=== PATIENT | male | born 1980 ===

== ENCOUNTER 2021-11-15 13:55 | Emergency (ER) | payer OTHER, MEDICAID, SELFPAY ==
[2021-11-15] VITALS (7 sets, daily range): BP systolic 117–138; BP diastolic 69–87; PULSE 66–107; RESP 16–20; TEMP 36.8; O2SAT 94–97
--- NOTE | 2021-11-15 14:26 | ED_ITS ---
HPI - General Adult General: Chief complaint: General Medical Stated complaint: n/v , head pain/throat pain Time Seen by Provider: 11/15/21 14:20 History of Present Illness: Mr Lynne is a 41-year-old gentleman without significant past medical history who presents to the emergency department due to sore throat, malaise, headache, nausea. Symptom onset was approximately 3 weeks ago and initially mild however is significantly worsened over the past few days. He endorses severe sore throat with radiation down the right side of his neck. Additionally he endorses generalized malaise and headache. He has difficulty opening his mouth and speech is somewhat muffled. He denies similar episodes in the past. No other specific changes in health, exacerbating, or alleviating factors identified. Onset (ago): week(s) Location: mouth and neck Severity: severe Quality: aching and sharp Pain Consistency: constant Exacerbating factors: eating and movement Review of Systems General: Reports: 10 or more systems reviewed and unremarkable except in HPI and below PFS ED PFSH: Medical History (Updated 11/22/21 @ 00:48 by Hermelindo Linad MD) No significant past medical history Surgical History (Updated 11/15/21 @ 14:50 by Hermelindo Linda MD) History of appendectomy Social History (Updated 11/15/21 @ 14:50 by Hermelindo Linda MD) Smoking and tobacco status: current every day smoker Alcohol intake: current Alcohol intake frequency: few times a week Physical Exam Const: COMMON NORMALS: alert GENERAL APPEARANCE: cooperative, well developed and ill appearing HENMT: COMMON NORMALS: normocephalic and atraumatic HEAD & SCALP: normocephalic and atraumatic THROAT: posterior oropharynx normal OTHER: Right to left deviation of uvula secondary to right posterior pharyngeal swelling. Limited view of tonsils. No mouth floor lesions. Eye: COMMON NORMALS: conjunctivae normal CONJUNCTIVA: Yes conjunctivae normal SCLERA: sclerae normal Neck/C-Spine: COMMON NORMALS: supple GENERAL: Yes trachea midline Resp: COMMON NORMALS: normal respiratory effort and clear to auscultation bilaterally EFFORT & INSPECTION: Yes able to speak in complete sentences AUSCULTATION: clear to auscultation bilaterally Cardio: COMMON NORMALS: regular rhythm RATE: tachycardic RHYTHM: regular rhythm GI: COMMON NORMALS: Soft to palpation PALPATION: Yes Soft to palpation and No Tenderness to palpation present (GI) PERCUSSION: normal to percussion Extremity: GENERAL: Yes normal exam except as noted and No edema Neuro: COMMON NORMALS: moves all extremities SENSORIUM/ORIENTATION: Yes alert and No Orientation impaired Psych: COMMON NORMALS: mental status grossly normal and Normal thought process present THOUGHT PROCESS: Normal thought process present Course ED course: - Patient was seen and evaluated by me at bedside - Patient placed on cardiac monitors, IV access obtained - Initial evaluation notable for exam as above, initial exam concerning for 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 Patient is tolerating secretions, no evidence of airway compromise requiring emergent intervention - Labs and xrays personally interpreted by me - Analgesia given - Labs notable for leukocytosis, hemoconcentration. Metabolic panel without acute derangement. Strep negative. - Imaging notable for ill-defined likely developing CIGARETTE MAKING MACHINE CATCHER however I do not feel that the stage of development is amenable to ED drainage - 2 L crystalloid given. Zosyn given. Steroids 125 mg Solu-Medrol. - Upon serial reexamination after treatment the patient was mildly improved. - Based on patient history, evaluation, and testing as interpreted the most likely cause of the patient's condition is likely developing peritonsillar abscess - Unfortunately we do not currently have the ENT on-call and hospitalist service uncomfortable admitting patient to our facility given potential requirement for further intervention if the antibiotics fail to resolve infection. - The results of ED evaluation were discussed with the patient including plan for transfer due to requirement for level of care not available at our facility. I used spanish medical interpreter telephone service for moy portions of ED encounter - Patient transferred from emergency department to [facility] without acute worsening. Note: Click bubbles or prepopulated vásquez in note writing are used for assistance with data collection and billing and are inherently more limited than narrative and other text portions of this note. Please use narrative for additional clinical history and defer to narrative/free test for any case of contradictory information. If information appears in only free text or click bubble it should be considered present or absent as reported. Please contact note internal communications writer f or clarifications of clinical information or contradictory information. MDM is a brief summary, contradictory or erroneous seeming information should be clarified and full note should be reviewed. Vital Signs: Vital signs: Vital Signs Temperature 98.2 F 11/15/21 14:04 Pulse Rate 66 04/03/22 19:52 Respiratory Rate 18 11/15/21 19:52 Blood Pressure 124/69 11/15/21 19:52 Pulse Oximetry 94 11/15/21 19:52 MDM - General Adult Medical Decision Making 41-year-old gentleman presenting with weeks of sore throat with significantly worsening over the past few days. Initial exam concerning for right-sided 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 Imaging notes likely developing CIGARETTE MAKING MACHINE CATCHER though not well organized and therefore I believe this is not amenable to ED intervention. Patient does have sepsis related to this infection. As we do not have ENT hospitalist service is uncomfortable admitting patient here and therefore patient transferred for inpatient management with ENT availability if future intervention required. Medical Records I reviewed the patient's medical records. Lab Data I reviewed the patient's lab results. : 11/15/21 15:05 11/15/21 15:[address] 11/15/21 14:34 IMPRESSION: 1. 19 mm right peritonsillar poorly defined low-density material concerning for an early peritonsillar abscess. 2. Scattered prominent lymph nodes throughout the neck right greater than left measuring up to 6.8 mm short axis. 3. Biapical emphysematous changes. Head CT 11/15/21 14:48 IMPRESSION: No acute intracranial abnormality. Laboratory Results WBC 17.5 10^3/uL (4.0-10.0) H 11/15/21 15:05 RBC 5.69 10^6/uL (4.1-5.3) H 11/15/21 15:05 Hgb 16.5 g/dL (11.7-16.6) 11/15/21 15:05 Hct 49.7 % (42.0-52.0) 11/15/21 15:05 MCV 87.3 fl (80-94) 11/15/21 15:05 MCH 29.0 pg (28.0-34.0) 11/15/21 15:05 MCHC 33.2 g/dL (30.0-36.0) 11/15/21 15:05 RDW 13.4 % (12.1-15.1) 11/15/21 15:05 Plt Count 409 10^3/cmm (130-400) H 11/15/21 15:05 MPV 9.0 fL (7.4-10.4) 11/15/21 15:05 Neut % (Auto) 72.3 % 11/15/21 15:05 Lymph % (Auto) 15.7 % 11/15/21 15:05 Jackson % (Auto) 10.9 % 11/15/21 15:05 Eos % (Auto) 0.3 % 11/15/21 15:05 Baso % (Auto) 0.3 % 11/15/21 15:05 Neut # (Auto) 12.65 10^3/uL (1.8-7.7) H 11/15/21 15:05 Lymph # (Auto) 2.8 10^3/uL (0.8-4.8) 11/15/21 15:05 Jackson # (Auto) 1.9 10^3/uL (0.2-0.9) H 11/15/21 15:05 Eos # (Auto) 0.1 10^3/uL (0.0-0.8) 11/15/21 15:05 Baso # (Auto) 0.1 10^3/uL (0.0-0.1) 11/15/21 15:05 Nucleated RBC % (auto) 0 % 11/15/21 15:05 Nucleated RBCs # 0.0 /100WBC 11/15/21 15:05 Sodium 138 mmol/L (136-145) 11/15/21 15:05 Potassium 4.0 mmol/L (3.5-5.1) 11/15/21 15:05 Chloride 100 mmol/L (98-107) 11/15/21 15:05 Carbon Dioxide 27 mmol/L (22-29) 11/15/21 15:05 Anion Gap 15.0 (5-19) 11/15/21 15:05 BUN 9 mg/dL (6-20) 11/15/21 15:05 Creatinine 0.8 mg/dL (0.7-1.2) 11/15/21 15:05 GFR Calculation 107.6 mL/min (90-130) 11/15/21 15:05 Glucose 94 mg/dL (65-115) 11/15/21 15:05 Calculated Osmolality 284 mOsm/kg (285-295) L 11/15/21 15:05 Lactic Acid 0.8 mmol/L (0.5-2.2) 11/15/21 15:05 Calcium 10.4 mg/dL (8.5-10.5) 11/15/21 15:05 Total Bilirubin 0.3 mg/dL (0.15-1.2) 11/15/21 15:05 AST 14 U/L (0-40) 11/15/21 15:05 ALT 21 U/L (0-41) 11/15/21 15:05 Alkaline Phosphatase 108 IU/L (40-130) 11/15/21 15:05 Total Protein 9.0 g/dL (6.6-8.7) H 11/15/21 15:05 Albumin 4.7 g/dL (3.5-5.2) 11/15/21 15:05 Globulin 4.3 g/dL (1.3-4.6) 11/15/21 15:05 Influenza Type A Ag Negative (Negative) 11/15/21 15:15 Influenza Type B Ag Negative (Negative) 11/15/21 15:15 Group A Strep Rapid Negative (Negative) 11/15/21 15:05 Discharge Plan Discharge Patient Disposition: Xfer Short-Term Hosp Clinical Impression: Peritonsillar abscess, Sepsis Condition: Stable Prescriptions: No Action No Known Home Medications 0RF Coding Level of Care Code 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
--- NOTE | 2021-11-15 14:34 | CTR_ITS ---
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 Radiation optimization: All CT scans at this facility use at least one of these dose optimization techniques: automated exposure control; mA and/or kV adjustment per patient size (includes targeted exams where dose is matched to clinical indication); or iterative reconstruction. Contrast material: OMNI 300; Contrast volume: 95 ml; Contrast route: INTRAVENOUS (IV); COMPARISON: CT head wo con* [id number] 11/15/2021 3:49 PM RADIATION DOSE METRICS: Total DLP (mGy-cm): 441.73 FINDINGS: Nasopharynx: Unremarkable. Oropharynx: 19 mm right peritonsillar poorly defined low-density material concerning for an early peritonsillar abscess. Hypopharynx: Unremarkable. Larynx: Unremarkable. Normal epiglottis. Retropharyngeal space: Unremarkable. Submandibular/Parotid glands: Normal. Glands are normal in size. Thyroid: Normal. No enlarged or calcified nodules. Lymph nodes: Scattered prominent lymph nodes throughout the neck right greater than left measuring up to 6.8 mm short axis. Trachea: Visualized trachea is unremarkable. Lungs: Biapical emphysematous changes. Bones/joints: Unremarkable. No acute fracture. Soft tissues: Unremarkable. No significant soft tissue swelling. CT/CT neck w con* [id number] IMPRESSION: 1. 19 mm right peritonsillar poorly defined low-density material concerning for an early peritonsillar abscess. 2. Scattered prominent lymph nodes throughout the neck right greater than left measuring up to 6.8 mm short axis. 3. Biapical emphysematous changes.
--- NOTE | 2021-11-15 14:48 | CTR_ITS ---
PROCEDURE INFORMATION: Exam: CT Head Without Contrast Exam date and time: 11/15/2021 3:49 PM Age: 41 years old Clinical indication: Pain; Headache TECHNIQUE: Imaging protocol: Computed tomography of the head without contrast. Radiation optimization: All CT scans at this facility use at least one of these dose optimization techniques: automated exposure control; mA and/or kV adjustment per patient size (includes targeted exams where dose is matched to clinical indication); or iterative reconstruction. COMPARISON: No relevant prior studies available. RADIATION DOSE METRICS: Total DLP (mGy-cm): 812.91 FINDINGS: Brain: Normal. No hemorrhage. Unremarkable white matter. No mass effect. Cerebral ventricles: No ventriculomegaly. Paranasal sinuses: Visualized sinuses are unremarkable. No fluid levels. Mastoid air cells: Visualized mastoid air cells are well aerated. Bones/joints: Unremarkable. No acute fracture. Soft tissues: Unremarkable. CT/CT head wo con* [id number] IMPRESSION: No acute intracranial abnormality.
[2021-11-15] MEDS: ondansetron 2 mg/ML SDV 2 mL 4 MG IVP (15:14)
[2021-11-15] MEDS: morphine 4 mg/mL SDV 1 mL IVP ×2 (15:14→17:46)
[2021-11-15 15:40] LABS: Basophils # 0.1 10^3/uL (0.0-0.1); Basophils % 0.3 %; Eosinophils # 0.1 10^3/uL (0.0-0.8); Eosinophils % 0.3 %; Hematocrit 49.7 % (42.0-52.0); Hemoglobin 16.5 g/dL (11.7-16.6); Lymphocytes # 2.8 10^3/uL (0.8-4.8); Lymphocytes % 15.7 %; Mean Corpuscular HGB Conc 33.2 g/dL (30.0-36.0); Mean Corpuscular Volume 87.3 fl (80-94); Monocytes # 1.9 10^3/uL (0.2-0.9); Monocytes % 10.9 %; Neutrophils # 12.65 10^3/uL (1.8-7.7); Neutrophils % 72.3 %; Nucleated Red Blood Cells % 0 %; Platelet Count 409 10^3/cmm (130-400); Red Blood Count 5.69 10^6/uL (4.1-5.3); Red Cell Distribution Width 13.4 % (12.1-15.1); White Blood Count 17.5 10^3/uL (4.0-10.0)
[2021-11-15] MEDS: iohexol 300 mg/mL 100 mL Btl IV (15:55)
[2021-11-15 16:00] LABS: Rapid Strep A Test Negative (Negative)
[2021-11-15 16:07] LABS: Lactic Sepsis W/Reflex 0.8 mmol/L (0.5-2.2)
[2021-11-15 16:08] LABS: Alanine Aminotransferase 21 U/L (0-41); Albumin Level 4.7 g/dL (3.5-5.2); Alkaline Phosphatase 108 IU/L (40-130); Aspartate Amino Transferase 14 U/L (0-40); Blood Urea Nitrogen 9 mg/dL (6-20); Calcium 10.4 mg/dL (8.5-10.5); Carbon Dioxide 27 mmol/L (22-29); Chloride 100 mmol/L (98-107); Globulin 4.3 g/dL (1.3-4.6); Glomerular Filtration Rate 107.6 mL/min (90-130); Glucose 94 mg/dL (65-115); Osmolality Calculated 284 mOsm/kg (285-295); Sodium 138 mmol/L (136-145); Total Bilirubin 0.3 mg/dL (0.15-1.2)
[2021-11-15 16:10] LABS: Influenza A by IFA Negative (Negative); Influenza B by IFA Negative (Negative)
[2021-11-15] MEDS: piperacillin-tazobactam 4.5 GM in sodium chloride 0.9% (plus) 50 ML IV (16:19)
[2021-11-15] MEDS: sodium chloride 0.9% 1,000 ML 999 ML IV (16:19)
--- NOTE | 2021-11-15 19:10 | PC.NURSE ---
1900 Patient awaiting transport team for transfer to [facility] in [place]. VS stable for transfer. IV antibiotics continue to infuse.
== END 2021-11-15 19:55 | disposition short-term general hospital (02) ==
PROVIDERS: Physician Assistant; Emergency Provider Emergency Medicine
DX: J36 Peritonsillar abscess (principal); A41.9 Sepsis, unspecified organism; F17.200 Nicotine dependence, unspecified, uncomplicated
CPT/HCPCS: 70450; 70491; 80053; 83605; 85025; 87040; 87081; 87804; 87880; 96365; 96375; 96376; 99285; J2270; J2405; J2543; J2930; J7030; Q9967

== ENCOUNTER 2022-01-06 10:21 | Outpatient (CLI) | payer OTHER, MEDICAID, SELFPAY ==
--- NOTE | 2022-01-06 10:38 | US_ITS ---
WS: [id number] RIGHT UPPER QUADRANT ULTRASOUND HISTORY: ABNORMAL LEVELS OF OTHER SERUM ENZYMES COMPARISON: None available. Liver: 14.6 cm in length. Normal size liver. No bile duct dilatation or mass. Portal Vein: Normal hepatopetal flow with monophasic waveform. Gallbladder: Well distended gallbladder. There are a few small calcifications within the gallbladder noted after changing position of the patient. No acute cholecystitis. CBD: 0.5 cm Pancreas: Normal size and echogenicity. Right kidney: 10.5 cm in length. Normal size and echogenicity. No hydronephrosis or mass. Aorta and IVC: Unremarkable abdominal aorta and IVC. No ascites. US/US abdomen limited [id number] IMPRESSION: 1. Cholelithiasis. Very small stones within the gallbladder. No acute cholecys titis. 2. No bile duct dilatation.
== END 2022-01-06 10:22 | disposition home or self-care (01) ==
PROVIDERS: Visit Provider Nurse Practitioner Family
DX: K80.20 Calculus of gallbladder without cholecystitis without obstruction (principal); R74.8 Abnormal levels of other serum enzymes
CPT/HCPCS: 76705

== ENCOUNTER → 2022-06-10 18:19 | Outpatient (BNVA) | payer OTHER, MEDICAID, SELFPAY | PROVIDERS: Visit Provider Registered Nurse Neonatal Intensive Care | DX: R10.9 Unspecified abdominal pain (principal) | CPT/HCPCS: 81000 ==

== ENCOUNTER 2022-06-15 19:25 | Emergency (ER) | payer MEDICAID, SELFPAY ==
[2022-06-15 19:39] VITALS: BP 129/85; PULSE 83; RESP 16; TEMP 36.6; O2SAT 99
[2022-06-15 20:41] LABS: Basophils # 0.1 10^3/uL (0.0-0.1); Basophils % 0.6 %; Eosinophils # 0.2 10^3/uL (0.0-0.8); Eosinophils % 2.5 %; Hematocrit 48.2 % (42.0-52.0); Hemoglobin 16.2 g/dL (11.7-16.6); Lymphocytes # 3.5 10^3/uL (0.8-4.8); Lymphocytes % 42.6 %; Mean Corpuscular HGB Conc 33.6 g/dL (30.0-36.0); Mean Corpuscular Hemoglobin 29.8 pg (28.0-34.0); Mean Corpuscular Volume 88.6 fl (80-94); Mean Platelet Volume 9.3 fL (7.4-10.4); Monocytes # 0.7 10^3/uL (0.2-0.9); Monocytes % 8.2 %; Neutrophils # 3.78 10^3/uL (1.8-7.7); Neutrophils % 45.7 %; Nucleated Red Blood Cells % 0 %; Platelet Count 327 10^3/cmm (130-400); Red Blood Count 5.44 10^6/uL (4.1-5.3); Red Cell Distribution Width 13.5 % (12.1-15.1); White Blood Count 8.3 10^3/uL (4.0-10.0)
[2022-06-15 21:01] LABS: Alanine Aminotransferase 36 U/L (0-41); Albumin Level 4.7 g/dL (3.5-5.2); Alkaline Phosphatase 67 U/L (40-130); Anion Gap 14.9 (5-19); Aspartate Amino Transferase 24 U/L (0-40); Blood Urea Nitrogen 11 mg/dL (6-20); Calcium 9.4 mg/dL (8.5-10.5); Carbon Dioxide 25 mmol/L (22-29); Chloride 103 mmol/L (98-107); Globulin 3.1 g/dL (1.3-4.6); Glomerular Filtration Rate 93.5 mL/min (90-130); Glucose 87 mg/dL (65-115); Lipase 21 U/L (13-60); Osmolality Calculated 287 mOsm/kg (285-295); Potassium 3.9 mmol/L (3.5-5.1); Sodium 139 mmol/L (136-145); Total Bilirubin 0.5 mg/dL (0.15-1.2); Total Protein 7.8 g/dL (6.6-8.7)
[2022-06-15 21:25] LABS: Add Urine Microscopic? NO; Charge for UA Resulting for Rev
[2022-06-15 21:59] LABS: Bilirubin Urine Neg (Negative); Blood Urine Neg (Negative); Glucose Urine UA Norm (Normal); Ketones Urine 1+ (Negative); Leukocyte Esterase Urine Negative (Negative); Nitrate Urine Negative (Negative); Protein Urine Neg (Negative); Urine Appearance Clear (CLEAR); Urine Color Yellow (Yellow); Urobilinogen Urine Norm (Negative); pH Urine 6 (5-7)
--- NOTE | 2022-06-15 22:29 | ED_ITS ---
HPI - Abdominal Pain General: Chief Complaint: Abdominal Pain Stated Complaint: ABD Pain, Back Pain Time Seen by Provider: 06/15/22 22:29 History of Present Illness: 42-year-old male patient comes in today with complaints of low back pain and left lower quadrant abdominal pain. 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 Patient denies any falls or recent injuries. Patient does have a history of gallstones. Patient is nontoxic in appearance. Patient appears in mild to moderate pain. Review of Systems General: Reports: 10 or more systems reviewed and unremarkable except in HPI and below Card: Denies: chest pain Resp: Denies: dyspnea GI: Reports: abdominal pain Musc: Reports: back pain Skin/Breast: Reports: rash PFSH ED PFSH: Medical History (Updated 06/16/22 @ 00:00 by NING Lopez) No significant past medical history Surgical History (Updated 11/15/21 @ 14:50 by Hermelindo Linda MD) History of appendectomy Social History (Updated 11/15/21 @ 14:50 by Hermelindo Linda MD) Smoking and tobacco status: current every day smoker Alcohol intake: current Alcohol intake frequency: few times a week Physical Exam Const: COMMON NORMALS: alert HENMT: COMMON NORMALS: normocephalic HEAD & SCALP: normocephalic Neck/C-Spine: GENERAL: Yes normal visual inspection Resp: COMMON NORMALS: normal respiratory effort and clear to auscultation bilaterally AUSCULTATION: clear to auscultation bilaterally Cardio: COMMON NORMALS: regular rate and regular rhythm RATE: regular rate RHYTHM: regular rhythm GI: COMMON NORMALS: Soft to palpation PALPATION: Yes Soft to palpation and Yes Tenderness to palpation present (GI) Details: LLQ Back/Pelvis: COMMON NORMALS: thoracic and lumbar spine normal to inspection Neuro: SENSORIUM/ORIENTATION: Yes alert Skin: COMMON NORMALS: turgor normal GENERAL SKIN EXAM: turgor normal Course Vital Signs: Vital signs: Vital Signs Temperature 97.8 F 06/15/22 19:39 Pulse Rate 83 06/15/22 19:39 Respiratory Rate 14 06/15/22 23:41 Blood Pressure 129/85 06/15/22 19:39 Pulse Oximetry 99 06/15/22 19:39 Oxygen Delivery Me thod 06/15/22 19:39 MDM - Abdominal Pain Medical Decision Making 42-year-old male comes in today with complaints of left side lower back pain radiating to the left groin. On exam patient's abdomen is soft with some tenderness in the left lower quadrant. Patient also has musculoskeletal tenderness on palpation of his low back. No central spinal tenderness is noted. Patient moves all extremities well. Differential diagnosis includes not limited to diverticulosis/diverticulitis, constipation, muscle strain, renal calculi, intervertebral disc disease, facet arthropathy, hernia. CT of the abdomen pelvis was notable for some small bowel and colon fluid prominence sugg esting a enterocolitis. CBC and CMP were unremarkable. Urinalysis was clean. Suspect a gastroenteritis with some abdominal pain. Patient was treated for pain and given fluids in the ER. Patient to continue with hydrocodone and ondansetron at home for symptoms. Recommend follow-up with primary care or return to the ER for worsening symptoms such as blood in vomit or stool, high fever, or new concerns. Lab Data : 06/15/22 20:33 06/15/22 20:33 Labs/Radiology: Radiology Impressions Abdomen/Pelvis CT 06/15/22 22:35 IMPRESSION: 1. Negative for hernia seen as clinically questioned. 2. Prominent fluid throughout the small bowel and colon may reflect an enterocolitis in the appropriate clinical setting. Laboratory Results WBC 8.3 10^3/uL (4.0-10.0) 06/15/22: RBC 5.44 10^6/uL (4.1-5.3) H 06/15/22 20: Hgb 16.2 g/dL (11.7-16.6) 06/15/22 20: Hct 48.2 % (42.0-52.0) 06/15/22 20: MCV 88.6 fl (80-94) 06/15/22 20: MCH 29.8 pg (28.0-34.0) 06/15/22 20: MCHC 33.6 g/dL (30.0-36.0) 06/15/22 20: RDW 13.5 % (12.1-15.1) 06/15/22 20: Plt Count 327 10^3/cmm (130-400) 06/15/22 20: MPV 9.3 fL (7.4-10.4) 06/15/22 20:33 Neut % (Auto) 45.7 % 06/15/22 20: Lymph % (Auto) 42.6 % 06/15/22 20: Perry % (Auto) 8.2 % 06/15/22 20: Eos % (Auto) 2.5 % 06/15/22 20: Baso % (Auto) 0.6 % 06/15/22 20: Neut # (Auto) 3.78 10^3/uL (1.8-7.7) 06/15/22 20: Lymph # (Auto) 3.5 10^3/uL (0.8-4.8) 06/15/22 20: Perry # (Auto) 0.7 10^3/uL (0.2-0.9) 06/15/22 20: Eos # (Auto) 0.2 10^3/uL (0.0-0.8) 06/15/22 20: Baso # (Auto) 0.1 10^3/uL (0.0-0.1) 06/15/22 20: Nucleated RBC % (auto) 0 % 06/15/22 20: Nucleated RBCs # 0.0 /100WBC 06/15/22 20:33 Sodium 139 mmol/L (136-145) 06/15/22 20: Potassium 3.9 mmol/L (3.5-5.1) 06/15/22 20: Chloride 103 mmol/L (98-107) 06/15/22 20: Carbon Dioxide 25 mmol/L (22-29) 06/15/22 20:33 Anion Gap 14.9 (5-19) 06/15/22 20:33 BUN 11 mg/dL (6-20) 06/15/22 20:33 Creatinine 0.9 mg/dL (0.7-1.2) 06/15/22 20:33 GFR Calculation 93.5 mL/min (90-130) 06/15/22 20: Glucose 87 mg/dL (65-115) 06/15/22 20: Calculated Osmolality 287 mOsm/kg (285-295) 06/15/22 20:33 Calcium 9.4 mg/dL (8.5-10.5) 06/15/22 20:33 Total Bilirubin 0.5 mg/dL (0.15-1.2) 06/15/22 20:33 AST 24 U/L (0-40) 06/15/22 20:33 ALT 36 U/L (0-41) 06/15/22 20:33 Alkaline Phosphatase 67 U/L (40-130) 06/15/22 20:33 Total Protein 7.8 g/dL (6.6-8.7) 06/15/22 20:33 Albumin 4.7 g/dL (3.5-5.2) 06/15/22 20:33 Globulin 3.1 g/dL (1.3-4.6) 06/15/22 20:33 Lipase 21 U/L (13-60) 06/15/22 20:33 Urine Color Yellow (Yellow) 06/15/22 19:58 Urine Appearance Clear (CLEAR) 06/15/22 19:58 Urine pH 6 (5-7) 06/15/22 19:58 Ur Specific Gust[place] 1.020 (1.005-1.030) 06/15/22 19:58 Urine Protein Neg (Negative) 06/15/22 19:58 Urine Glucose (UA) Norm (Normal) 06/15/22 19:58 Urine Ketones 1+ (Negative) H 06/15/22 19:58 Urine Blood Neg (Negative) 06/15/22 19:58 Urine Nitrate Negative (Negative) 06/15/22 19:58 Urine Bilirubin Neg (Negative) 06/15/22 19:58 Urine Urobilinogen Norm mg/dL (Negative) 06/15/22 19:58 Ur Leukocyte Esterase Negative (Negative) 06/15/22 19:58 Discharge Plan Discharge Patient Disposition: Home Clinical Impression: Gastroenteritis Abdominal pain Qualifiers: Abdominal location: left lower quadrant Qualified Code(s): R10.32 - Left lower quadrant pain Condition: Stable Prescriptions: New ondansetron 4 mg tablet,disintegrating 4 mg PO Q8H PRN (Reason: nausea and vomiting) Qty: 10 0RF hydrocodone-acetaminophen 5-325 mg tablet 1 tab PO Q6H PRN (Reason: pain (scale score 7-10)) Qty: 10 0RF Discharge Orders: Discharge ED (Routine); Ordered 06/15/22 Ordered By: Sammy Shepherd Discharge Diet: Advance as tolerated Discharge Activity: Increase activity as tolerated Patient Instructions: Abdominal Pain (ED), Opioid Safety Activity Restrictions/Additional Instructions: Drink plenty of water. Activity as tolerated. Use acetaminophen and ibuprofen as needed for pain. Use hydrocodone for severe pain. Use ondansetron for nausea as needed. Follow-up with primary care for further instruction. Return to emergency department for worsening symptoms such as high fever greater than 100.4, 38 ?C, blood in vomit or stool, or uncontrolled pain. Stand Alone Forms: Work/School Release Coding Level of Care Code ED [employer] for Chg Fwd Exam Comprehensive
--- NOTE | 2022-06-15 22:35 | CTR_ITS ---
PROCEDURE INFORMATION: Exam: CT Abdomen And Pelvis With Contrast Exam date and time: 06/15/2022 10:51 PM Age: 42 years old Clinical indication: Abdominal pain; Localized; Left lower quadrant (llq); Patient HX: Llq and back pain; Additional info: Left lower quad pain, R/O hernia TECHNIQUE: Imaging protocol: Computed tomography of the abdomen and pelvis with contrast. Radiation optimization: All CT scans at this facility use at least one of these dose optimization techniques: automated exposure control; mA and/or kV adjustment per patient size (includes targeted exams where dose is matched to clinical indication); or iterative reconstruction. Contrast material: OMNI 350; Contrast volume: 100 ml; Contrast route: INTRAVENOUS (IV); COMPARISON: US abdomen limited [id number] 01/06/2022 10:51 AM RADIATION DOSE METRICS: Total DLP (mGy-cm): 341.63 FINDINGS: Liver: Normal. No mass. Gallbladder and bile ducts: Normal. No calcified stones. No ductal dilation. Pancreas: Normal. No ductal dilation. Spleen: Normal. No splenomegaly. Adrenal glands: Normal. No mass. Kidneys and ureters: Normal. No hydronephrosis. Stomach and bowel: Prominent fluid throughout the small bowel and colon may reflect an enterocolitis in the appropriate clinical setting. Appendix: No evidence of appendicitis. Intraperitoneal space: Unremarkable. No free air. No significant fluid collection. Vasculature: Unremarkable. No abdominal aortic aneurysm. Lymph nodes: Unremarkable. No enlarged lymph nodes. Urinary bladder: Unremarkable as visualized. Reproductive: Unremarkable as visualized. Bones/joints: Unremarkable. No acute fracture. Soft tissues: Unremarkable. CT/CT abdomen pelvis w con* [id number] IMPRESSION: 1. Negative for hernia seen as clinically questioned. 2. Prominent fluid throughout the small bowel and colon may reflect an enterocolitis in the appropriate clinical setting.
[2022-06-15] MEDS: iohexol 350 mg/mL 500 mL Btl (per mL) IV (22:55)
[2022-06-15 23:41] VITALS: RESP 14
[2022-06-15] MEDS: morphine 4 mg/mL SDV 1 mL IVP (23:41)
[2022-06-15] MEDS: sodium chloride 0.9% 500 ML 999 ML IV (23:42)
[2022-06-15] MEDS: ondansetron 2 mg/ML SDV 2 mL 4 MG IVP (23:42)
[2022-06-16 00:32] VITALS: RESP 14
[2022-06-16] MEDS: HYDROmorphone 1 mg/mL INJ 1 mL IVP (00:32)
[2022-06-16 00:36] VITALS: BP 134/80; PULSE 50; RESP 14; O2SAT 96
== END 2022-06-16 00:48 | disposition home or self-care (01) ==
PROVIDERS: Emergency Medicine; Emergency Provider Nurse Practitioner Family
DX: K52.9 Noninfective gastroenteritis and colitis, unspecified (principal); F17.210 Nicotine dependence, cigarettes, uncomplicated
CPT/HCPCS: 74177; 80053; 81003; 83690; 85025; 96361; 96374; 96375; 99285; J1170; J2270; J2405; J7040; Q9967

== ENCOUNTER 2022-06-23 20:44 | Emergency (ER) | payer MEDICAID, SELFPAY ==
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
[2022-06-23 20:53] VITALS: BP 106/72; PULSE 68; RESP 22; TEMP 36.8; O2SAT 98; BMI 25.7
[2022-06-23 21:52] VITALS: BP 106/72; PULSE 68; RESP 22; TEMP 36.8; O2SAT 98
--- NOTE | 2022-06-23 21:52 | ED_ITS ---
HPI - Back Pain/Injury General: Chief Complaint: Back Pain/Injury Stated Complaint: bilateral rib injury Time Seen by Provider: 06/23/22 21:50 History of Present Illness: 42-year-old male patient comes in today for complaints of left anterior rib pain. Patient reports that his friend gave him a big hug at work today and he felt a pop in his left rib area. On exam patient is very guarded with touch. Patient appears nontoxic. Patient appears in mild to moderate pain. Associated symptoms: Deny fever(s), nausea or vomiting Review of Systems Const: Denies: fever(s) Resp: Denies: dyspnea GI: Denies: nausea or vomiting Musc: Reports: other (Rib pain) PFS ED PFSH: Medical History (Updated 06/23/22 @ 22:00 by NING Lopez) No significant past medical history Surgical History (Updated 11/15/21 @ 14:50 by Hermelindo Linda MD) History of appendectomy Social History (Updated 11/15/21 @ 14:50 by Hermelindo Linda MD) Smoking and tobacco status: current every day smoker Alcohol intake: current Alcohol intake frequency: few times a week Physical Exam Const: COMMON NORMALS: alert HENMT: COMMON NORMALS: normocephalic HEAD & SCALP: normocephalic Neck/C-Spine: COMMON NORMALS: full ROM Chest: CHEST: Yes tenderness (Tenderness, left anterior, no crepitus, no SQ emphysema.) Resp: COMMON NORMALS: normal respiratory effort and clear to auscultation bilaterally AUSCULTATION: clear to auscultation bilaterally Cardio: COMMON NORMALS: regular rate and regular rhythm RATE: regular rate RHYTHM: regular rhythm Extremity: COMMON NORMALS: normal to inspection Neuro: SENSORIUM/ORIENTATION: Yes alert Skin: COMMON NORMALS: turgor normal GENERAL SKIN EXAM: turgor normal Course Vital Signs: Vital signs: Vital Signs Temperature 98.2 F 06/23/22 21:52 Pulse Rate 68 06/23/22 21:52 Respiratory Rate 22 H 06/23/22 21:52 Blood Pressure 106/72 06/23/22 21:52 Pulse Oximetry 98 06/23/22 21:52 Oxygen Delivery Me thod 06/23/22 21:52 MDM - Back Pain/Injury Medical Decision Making 42-year-old male comes in today for complaints of injury to the left anterior rib. On exam there is no sign of SQ emphysema or crepitus. No flail chest. Lungs are clear to auscultation. Heart is regular rate. No swelling is noted in lower extremities. Differential diagnosis includes rib fracture, pne umothorax, contusion, costochondritis. X-ray of the chest was unremarkable. Reviewed exam with patient with recommendations for treatment for contusion of the rib. Recommend follow-up as needed. Return to ED for new concerns. Labs Radiology Impressions Chest X-Ray 06/23/22 20:47 IMPRESSION: No acute findings. Discharge Plan Discharge Patient Disposition: Home Clinical Impression: Rib pain on left side Condition: Stable Prescriptions: New ketorolac 10 mg tablet 10 mg PO Q6H PRN (Reason: pain) 5 Days Qty: 20 0RF Discontinued hydrocodone-acetaminophen 5-325 mg tablet 1 tab PO Q6H PRN (Reason: pain (scale score 7-10)) Qty: 10 0RF No Action ondansetron 4 mg tablet,disintegrating 4 mg PO Q8H PRN (Reason: nausea and vomiting) Qty: 10 0RF Discharge Orders: Discharge ED (Routine); Ordered 06/23/22 Ordered By: Sammy Shepherd Discharge Diet: Usual diet Discharge Activity: Increase activity as tolerated Patient Instructions: Musculoskeletal Pain (ED) Activity Restrictions/Additional Instructions: Activity as tolerated. Drink plenty of water with medication. Use ice and heat to the area for further pain relief. Follow-up with primary care for further instruction. Return to ED for new concerns. 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
[2022-06-23] MEDS: ketorolac 30 mg/mL INJ IM (22:16)
[2022-06-23] MEDS: dexamethasone 10 mg/mL INJ IM (22:17)
[2022-06-23 22:38] VITALS: BP 106/72; PULSE 68; RESP 22; TEMP 36.8; O2SAT 98
== END 2022-06-23 22:30 | disposition home or self-care (01) ==
PROVIDERS: Emergency Provider Nurse Practitioner Family
DX: R07.81 Pleurodynia (principal)
CPT/HCPCS: 71045; 96372; 99284; J1100; J1885

== ENCOUNTER 2022-09-03 14:45 | Emergency (ER) | payer MEDICAID, SELFPAY ==
[2022-09-03 14:56] VITALS: BP 123/81; PULSE 74; RESP 18; TEMP 36.2; O2SAT 97
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
[2022-09-03] MEDS: ketorolac 60 mg/2 mL INJ IM (16:03)
[2022-09-03] MEDS: orphenadrine 30 mg/mL Inj 2 mL 60 MG IM (16:03)
== END 2022-09-03 16:37 | disposition home or self-care (01) ==
PROVIDERS: Emergency Provider Physician Assistant
DX: Z04.1 Encounter for examination and observation following transport accident (principal); V58.6XXA Passenger in pick-up truck or van injured in noncollision transport accident in traffic accident, initial encounter; F17.210 Nicotine dependence, cigarettes, uncomplicated
CPT/HCPCS: 70450; 70486; 72125; 96372; 99284; J1885; J2360

== ENCOUNTER 2022-12-06 20:26 | Emergency (ER) | payer OTHER, MEDICAID, SELFPAY ==
--- NOTE | 2022-12-06 20:28 | XRR_ITS ---
PROCEDURE INFORMATION: Exam: XR Left Foot Exam date and time: 12/06/2022 8:33 PM Age: 42 years old Clinical indication: Injury or trauma; Fall; Blunt trauma; Foot; Left TECHNIQUE: Imaging protocol: Radiologic exam of the left foot. Views: 3 or more views. COMPARISON: No relevant prior studies available. FINDINGS: Bones/joints: Distal tibial metaphysis mildly displaced fracture with involvement of the articular surface at the tibiotalar joint Soft tissues: Normal. XR/XR foot LT min 3V* [id number] IMPRESSION: Distal tibial metaphysis mildly displaced fracture with involvement of the articular surface at the tibiotalar joint
[2022-12-06 20:33] VITALS: BP 133/85; PULSE 66; RESP 20; TEMP 36.8; O2SAT 98; BMI 24.0
--- NOTE | 2022-12-06 21:54 | XRR_ITS ---
PROCEDURE INFORMATION: Exam: XR Left Ankle Exam date and time: 12/06/2022 10:01 PM Age: 42 years old Clinical indication: Injury or trauma; Fall; Fracture, traumatic; Closed fracture; Left; Lower end of tibia TECHNIQUE: Imaging protocol: Radiologic exam of the left ankle. Views: 3 or more views. COMPARISON: CR (LOW EXM, ) 12/06/2022 8:33 PM FINDINGS: Bones/joints: Distal tibial metaphyseal mildly displaced fracture with articular involvement at the tibiotalar joint. Soft tissues: Normal. XR/XR ankle LT min 3V* [id number] IMPRESSION: Distal tibial metaphyseal mildly displaced fracture with articular involvement at the tibiotalar joint.
--- NOTE | 2022-12-06 21:56 | W.ED.FALL ---
HPI - Fall General: Chief Complaint: Fall Stated Complaint: Left Foot Injury Time Seen by Provider: 12/06/22 21:51 Source: patient Mode of arrival: ambulatory Limitations: no limitations History of Present Illness: 42-year-old male states that he jumped off a roof this afternoon and landed on his left leg and felt immediate pain in his left ankle he states he has not been able to walk since then has had ankle pain he rates a 7 out of 10 denies any back or knee pain he denies any other injuries. Associated symptoms-after fall: Denies abdominal pain, chest pain, headache(s) or neck pain Review of Systems Const: Denies: fever(s), chills, body aches or change in appetite ENMT: Denies: throat pain or dental pain Card: Denies: chest pain Resp: Denies: dyspnea GI: Denies: abdominal pain, nausea, vomiting or diarrhea Musc: Reports: extremity pain; Denies: neck pain or back pain Skin/Breast: Denies: rash Neuro: Denies: headache(s) PFSH ED PFSH: Medical History No significant past medical history Surgical History History of appendectomy Social History Smoking and tobacco status: current every day smoker Alcohol intake: current Alcohol intake frequency: few times a week Physical Exam Const: COMMON NORMALS: no acute distress, patient oriented x3 and healthy appearing HENMT: COMMON NORMALS: normocephalic and atraumatic HEAD & SCALP: normocephalic and atraumatic Eye: COMMON NORMALS: conjunctivae normal CONJUNCTIVA: Yes conjunctivae normal Neck/C-Spine: COMMON NORMALS: full ROM and supple Chest: COMMONS NORMALS: normal inspection of the chest Resp: COMMON NORMALS: normal respiratory effort and No use of accessory muscles Cardio: COMMON NORMALS: regular rate, regular rhythm and No murmurs present (Cardio) RATE: regular rate RHYTHM: regular rhythm GI: INSPECTION: Yes normal to inspection Extremity: COMMON NORMALS: full ROM NARRATIVE EXTREMITY EXAM: Tenderness and swelling noted to left ankle distal pulses intact Neuro: COMMON NORMALS: patient oriented x3, moves all extremities and no focal motor deficits Psych: COMMON NORMALS: mental status grossly normal, Normal thought process present and cooperative THOUGHT PROCESS: Normal thought process present Skin: COMMON NORMALS: no rashes or lesions noted and no wounds GENERAL SKIN EXAM: no rashes or lesions noted Course Vital Signs: Vital signs: Vital Signs Temperature 98.3 F 12/06/22 20:33 Pulse Rate 66 12/06/22 20:33 Respiratory Rate 20 H 12/06/22 20:33 Blood Pressure 133/85 12/06/22 20:33 Pulse Oximetry 98 12/06/22 20:33 Oxygen Delivery Me thod Room Air 12/06/22 20:33 MDM - Fall Medical Decision Making Patient presents here with an ankle fracture from a fall he is well-appearing here no other fractures noted we will place patient in a splint he is to use crutches we will get him follow-up in orthopedics he is return if worsening he understands agrees plan. Lab Data Radiology Impressions Foot X-Ray 12/06/22 20:28 IMPRESSION: Distal tibial metaphysis mildly displaced fracture with involvement of the articular surface at the tibiotalar joint Discharge Plan Discharge Patient Disposition: Home Clinical Impression: Fracture of left ankle Condition: Stable Prescriptions: New hydrocodone-acetaminophen 5-325 mg tablet 1 tab PO Q6H PRN (Reason: pain) Qty: 14 0RF Naprosyn 500 mg tablet 500 mg PO BID PRN (Reason: pain) Qty: 20 0RF No Action ondansetron 4 mg tablet,disintegrating 4 mg PO Q8H PRN (Reason: nausea and vomiting) Qty: 10 0RF Celebrex 100 mg capsule 100 mg PO BID PRN (Reason: pain) Qty: 20 0RF cyclobenzaprine 10 mg tablet 10 mg PO BID PRN (Reason: muscle spasm and pain) Qty: 20 0RF Discharge Orders: Discharge ED (Routine); Ordered 12/06/22 Ordered By: Renea Plaza Referrals: Randell Thomas DO [Physician] - 1-3 days Discharge Diet: Advance as tolerated Discharge Activity: Increase activity as tolerated and Use walker/crutches as instructed Patient Instructions: Ankle Fracture (ED), Opioid Safety Coding Level of Care Code 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
[2022-12-06] MEDS: HYDROcodone-acetaminophen 5-325 mg Tablet 1 TAB PO ×2 (21:59→22:39)
[2022-12-07] MEDS: HYDROcodone-acetaminophen 5-325 mg Tablet 2 TAB PO
--- NOTE | 2022-12-07 00:11 | PC.NURSE ---
Patient sent home with 2 hydrocodone tablets. Verified with second nurse.
[2022-12-07 00:12] VITALS: BP 122/80; PULSE 81; RESP 18; O2SAT 94
--- NOTE | 2022-12-07 08:48 | DCPLANNER ---
Addendum entered by Neris Perez 12/09/22 08:47: Patient had a follow up appointment scheduled with ortho - patient did attend appointment. Addendum entered by Neris Perez 12/07/22 13:48: Patient has a follow up appointment scheduled for Tuesday, December 08, 2022 at 3:[address] Hendricks at ortho. Original Note: occupational safety and health manager had message to schedule a follow up appointment for patient with ortho. occupational safety and health manager sent patients information to the front office staff at ortho. Patients information will be printed and reviewed. Clinic will call patient with appointment information.
--- NOTE | 2022-12-10 12:25 | DCPLANNER ---
door manager called patient due to no primary care physician - no answer at this time.
== END 2022-12-07 00:10 | disposition home or self-care (01) ==
PROVIDERS: Emergency Provider Emergency Medicine
DX: S82.392A Other fracture of lower end of left tibia, initial encounter for closed fracture (principal); F17.210 Nicotine dependence, cigarettes, uncomplicated; W17.89XA Other fall from one level to another, initial encounter
CPT/HCPCS: 29515; 73610; 73630; 99283; E0114

== ENCOUNTER 2022-12-10 07:04 | Outpatient (CLI) | payer OTHER, MEDICAID, SELFPAY ==
--- NOTE | 2022-12-10 07:30 | CT_ITS ---
WS: [id number] CT LEFT ANKLE, NONCONTRAST, 3-D. HISTORY: S82.872A - Displaced pilon fracture of left tibia, fell off roof. Technique: All CT scans at [facility] use at least one of these dose optimization techniques: automated exposure control; mA and/or kV adjustment per patient size (includes targeted exams where dose is matched to clinical indication); or iterative reconstruction. DLP: 154.52 mGy.cm COMPARISON: Radiographs 12/06/2022. Comminuted fracture with vertical and horizontal components involving the distal 4.8 cm of the tibia with extension to the tibial plafond. There are multiple vertical fractures extending to the articula r surface of the distal tibia. Fractures are displaced up to 0.6 cm. Fracture extends into the medial malleolus. Ankle mortise is widened and asymmetric. No fibular fracture is identified distally. Note describes that there is a very tiny avulsion fractur e from the lateral talar dome. No additional talar abnormality. No calcaneal fracture. Extensive soft tissue edema surrounding the ankle. CT/CT ankle LT wo con* [id number] IMPRESSION: 1. Comminuted distal tibial fracture with extension to the plafond, horizontal and vertical components. 2. Fracture extends over a length of 4.8 cm through the distal tibia with disp lacement x 0.6 cm. 3. Additional tiny avulsion fracture from the lateral talar dome. 4. Mild widening of the ankle mortise. 5. No calcaneal fracture.
== END 2022-12-10 07:05 | disposition home or self-care (01) ==
LOC: RAD 07:05
PROVIDERS: Visit Provider Podiatrist Foot & Ankle Surgery
DX: S82.872A Displaced pilon fracture of left tibia, initial encounter for closed fracture (principal); S92.142A Displaced dome fracture of left talus, initial encounter for closed fracture; X58.XXXA Exposure to other specified factors, initial encounter
CPT/HCPCS: 73700

== ENCOUNTER 2022-12-23 06:00 | Day surgery (SDC) | payer OTHER, SELFPAY ==
[2022-12-22 13:49] VITALS: BMI 24.0
[2022-12-23] VITALS (9 sets, daily range): BP systolic 109–138; BP diastolic 74–95; PULSE 58–74; RESP 14–17; TEMP 36.1–36.6; O2SAT 98–100
--- NOTE | 2022-12-23 | XR_ITS ---
WS: [id number] Left ankle, C-arm fluoroscopy, 12/23/2022 Clinical Data: left pilon fracture Comparison: Left ankle, 12/06/2022 Findings: Dr. Hendricks repaired the distal left tibial fracture with 3 orthopedic screws. XR/XR ankle LT min 3V* [id number] Impression: Internal fixation of distal left tibial fracture.
[2022-12-23] MEDS: acetaminophen 1,000 MG/100 ML PIGGYBACK 400 MG IV (06:30)
[2022-12-23] MEDS: sodium chloride 0.9% 1,000 ML 30 ML IV (06:30)
[2022-12-23] MEDS: gabapentin 300 mg Capsule PO (06:32)
--- NOTE | 2022-12-23 06:33 | W.PM.OPSUD ---
Surgery/Procedure H&P Update DATE OF PROCEDURE: December 23, 2022 DATE H&P PERFORMED: 12/13/22 CHANGES TO PREVIOUS DOCUMENTATION: No changes PLANNED PROCEDURE: Operation Date: 12/23/22 07:00 Proposed Procedures p ?Left pilon fracture ORIF CPT 76653,:?S82.872(Left) - Omega Hendricks DPM
[2022-12-23] MEDS: ceFAZolin 2,000 MG in sodium chloride 0.9% (plus) 50 ML 100 MG IV (07:02)
--- NOTE | 2022-12-23 07:55 | ANES.PREANE2 ---
Pre-Anesthetic Assessment Height/Weight: Height 1.63 m Weight 63.503 kg Temp Pulse Resp BP Pulse Ox O2 Del Method 97.2 F L 74 16 125/81 99 Room Air 12/23/22 06:22 12/23/22 06:22 12/23/22 06:22 12/23/22 06:22 12/23/22 06:22 12/23/22 06:22 Operation Date: 12/23/22 07:00 Proposed Procedures p ?Left pilon fracture ORIF CPT 46753,:?S82.872(Left) - Omega Hendricks DPM Familial anesthetic complications: none Was Beta Cielo taken within 24 hours: N/A Was Clonidine taken within 24 hours: N/A Last intake: Intake Last Liquid Date 12/22/22 Last Liquid Time 23:00 Last Solid Date 12/22/22 Last Solid Time 23:00 Social Tobacco and No alcohol Exam alert, oriented x 3 and regular rate & rhythm Airway Submandibular: within normal limits Cervical ROM: within normal limits Mallampati: Class II Dentition: chipped History/ROS No significant history except as noted Anesthetic Plan ASA status: 2 Anesthesia: General and Regional (specify below) (left pop blk) Medications/Allergies Home Medications Medication Instructions Recorded Confirmed Last Taken Type ondansetron 4 mg disintegrating 4 mg PO Q8H PRN nausea and 06/15/22 12/23/22 12/22/22 Rx tablet vomiting #10 tabs celecoxib 100 mg capsule (Celebrex) 100 mg PO BID PRN pain #20 caps 09/03/22 12/23/22 12/22/22 Rx naproxen 500 mg tablet (Naprosyn) 500 mg PO BID PRN pain #20 tabs 12/06/22 12/23/22 12/22/22 Rx cyclobenzaprine 10 mg tablet 10 mg PO Q12H #14 tabs 12/08/22 12/22/22 12/22/22 Rx oxycodone-acetaminophen 5 mg-325 1 tab PO Q6H PRN pain 7 days #28 12/13/22 12/22/22 12/22/22 Rx mg tablet tabs oxycodone-acetaminophen 5 mg-325 1 tab PO Q6H PRN pain 7 days #28 12/23/22 Unknown Rx mg tablet tabs Allergies Allergy/AdvReac Type Severity Reaction Status Date / Time No Known Allergies Allergy Verified 12/22/22 13:42 Current Medications Generic Name Dose Route Start Last Admin Trade Name Colinq PRN Reason Stop Dose Admin Sodium Chloride 1,000 mls @ 30 mls/hr 12/23/22 06:15 12/23/22 06:30 Sodium Chloride 0.9% IV 12/24/22 06:14 30 mls/hr .Q24H DOMINGO Administration PFSH Anesthesia Medical History No significant past medical history Surgical History History of appendectomy Social History Smoking and tobacco status: current every day smoker Alcohol intake: current Alcohol intake frequency: few times a week Data Anesthesia Cardiac Studies: No Data to Display Anesthesia Procedures Nerve Block Nerve Block 1: Main Anesthesia: general anesthesia Time Out Performed: Yes Consent: requested by attending/covering physician, from patient, risks and benefits reviewed and patient agrees to proceed Nerve block location: popliteal (left) Anesthesia monitors applied: pulse oximetry, EKG, BP cuff and oxygen Nerve block position: supine Anesthetic Used: ropivicaine 0.5% Amount of anesthesia used (mL): 30 Ultrasound used to: recognize landmarks Nerve Stimulator Used?: No Interscalene/Femoral BLK: 4 stimuplex 21 g needle used for position and inplane approach Injection: neg aspiration of heme Patient Tolerated Procedure: well Complications: none
--- NOTE | 2022-12-23 15:00 | P.OP_ITS ---
Operative Report Date of procedure: December 23, 2022 Pre-op diagnosis: Left ankle pilon fracture Post-op diagnosis: Same Post-op findings: Left ankle pilon fracture. Anatomical reduction achieved, permanent fixation with headless cannulated screws from [place] [employer] Procedure done: Open reduction internal fixation left ankle pilon fracture CPT 16509 Implants: Three 3.5 headless compression screws from [place] [employer] Surgeon: Dr. Omega Hendricks, D.P.M. Estimated blood loss: Less than 20 cc Complications: None Findings: See above Procedure: Patient is a 42-year-old male that has a history of left ankle pilon fracture. The extent of the injury is intra-articular and warrants open reduction internal fixation. A lengthy discussion regarding the procedure, including risks and complications has been had with the patient and is noted in the recent clinic note. Written and verbal consent have been obtained. All patient questions have been answered to the patient?s satisfaction. No written or verbal guarantees have been given or implied. The patient has been NPO since midnight. The history has been reviewed and the history and physical is current. The signed consent was confirmed and placed in the patient chart. Patient imaging has been reviewed and is consistent with the diagnosis. Under mild sedation, the patient was brought into the operating room and placed on the table in the supine position. IV antibiotics were given by the anesthesia team as preoperative surgical prophylaxis. General sedation was then performed by the anesthesiateam. A pneumatic tourniquet was then placed about the left thigh. The patient received a popliteal block from the anesthesia department in the preoperative area. The operative extremity was then prepped and draped in the usual fashion. The extremity was then elevated and exsanguinated before the tourniquet was inflated to 325 mmHg. After inflation, the following procedure was then performed. Attention was directed to the anterior aspect of the left ankle where a 10 cm incision was made over the anterior surface of the ankle. Dissection was carried down through subcutaneous and superficial fascia. Any bleeders were cauterized as necessary. Vital neurovascular structures were identified and retracted out of the operative field. #15 blade was used to incise through the extensor retinaculum. The tibialis anterior was left in its respective tendon sheath. Dissection was carried down to the level of the ankle joint capsule. This was incised to expose the distal tibia. Fracture fragment of the anterolateral tibia was identified. Hematoma from the fracture site was removed using commendation of rongeur and curette. After Duvoid in the area of hematoma the fracture was reduced and temporally fixated with K wires. After appropriate position and reduction of the fracture fragment was confirmed clinically as well as on C-arm imaging 3 guidewires were driven perpendicular to the fracture site before being drilled over. Next, three 3.5 headless compression screws from [place] [employer] were inserted over the wires perpendicular to the fracture line. Good positioning of the screws was noted on C-arm imaging as well as clinically. The syndesmosis was stressed and was noted to be intact. The site was then irrigated with copious amounts of sterile saline before attention was directed to closure. Deep tissue including retinaculum was closed with 2-0 Vicryl followed by subcuticular closure with 3-0 Vicryl and skin closure with 3-0 nylon in horizontal mattress fashion. The tourniquet was let down and good hyperemic response was noted all digits of the left foot. The incision site was dressed with Xeroform, 4 x 4 gauze, Kerlix before being placed in a well-padded below the knee posterior splint. The patient tolerated the procedure and anesthesia well and without compl ication. The patient was transported from the operating room to the recovery room with vital signs stable and vascular status intact to all digits of the left foot. The patient was given both written and verbal instructions to remain nonweightbearing to the operative extremity, to keep dressings/splint clean, dry and intact and to take pain medication as directed. The patient will follow-up in the outpatient setting at their scheduled appointment. The patient was discharged with my personal number and was instructed to call if any questions or issues should arise. They were discharged home once anesthesia criteria was met.
--- NOTE | 2022-12-23 16:13 | ANE.PACU2 ---
Inpatient post-anesthesia follow up: Airway intact: Yes Vital signs: Temperature 97.8 F Pulse Rate 62 Respiratory Rate 16 Blood Pressure 132/95 Pulse Oximetry 100 Oxygen Delivery Me thod Room Air Oxygen Flow Rate 6 Fraction of Inspir ed Oxygen Hydration adequate: Yes Nausea and vomiting: No Pain level: 1 Mental status: Baseline
== END 2022-12-23 10:53 | disposition home or self-care (01) ==
PROVIDERS: Visit Provider Podiatrist Foot & Ankle Surgery
PROC: (CPT 27827; principal; 2022-12-23 07:00)
DX: S82.872A Displaced pilon fracture of left tibia, initial encounter for closed fracture (principal); X58.XXXA Exposure to other specified factors, initial encounter; Z79.891 Long term (current) use of opiate analgesic; F17.200 Nicotine dependence, unspecified, uncomplicated
CPT/HCPCS: 27827; 73610; 76000; C1713; J0131; J0690; J1100; J2250; J2405; J2704; J2795; J3010; J3490; J7030

== ENCOUNTER → 2023-01-03 08:34 | Outpatient (BNVA) | payer OTHER, SELFPAY | PROVIDERS: Visit Provider Podiatrist Foot & Ankle Surgery | DX: S82.872A Displaced pilon fracture of left tibia, initial encounter for closed fracture (principal); W19.XXXA Unspecified fall, initial encounter | CPT/HCPCS: 73610 ==

== ENCOUNTER → 2023-01-26 15:01 | Outpatient (BNVA) | payer OTHER, SELFPAY | PROVIDERS: Visit Provider Podiatrist Foot & Ankle Surgery | DX: Z98.890 Other specified postprocedural states (principal); S82.872D Displaced pilon fracture of left tibia, subsequent encounter for closed fracture with routine healing; X58.XXXD Exposure to other specified factors, subsequent encounter | CPT/HCPCS: 73610 ==

== ENCOUNTER 2023-01-28 15:50 | Outpatient (CLI) | payer OTHER, SELFPAY | END 2023-01-28 15:51 | disposition home or self-care (01) | LOC: SPT 15:50 | PROVIDERS: Visit Provider Podiatrist Foot & Ankle Surgery | DX: Z46.89 Encounter for fitting and adjustment of other specified devices (principal); S82.872D Displaced pilon fracture of left tibia, subsequent encounter for closed fracture with routine healing; X58.XXXD Exposure to other specified factors, subsequent encounter | CPT/HCPCS: 97760; L4361 ==

== ENCOUNTER → 2023-02-09 15:25 | Outpatient (BNVA) | payer OTHER, SELFPAY | PROVIDERS: Visit Provider Podiatrist Foot & Ankle Surgery | DX: M25.572 Pain in left ankle and joints of left foot (principal); Z98.890 Other specified postprocedural states | CPT/HCPCS: 73610 ==

== ENCOUNTER 2023-02-24 15:43 | Outpatient (CLI) | payer OTHER, SELFPAY | END 2023-02-24 15:44 | disposition home or self-care (01) | LOC: SPT 15:44 | PROVIDERS: Visit Provider Podiatrist Foot & Ankle Surgery | DX: Z46.89 Encounter for fitting and adjustment of other specified devices (principal); S82.872D Displaced pilon fracture of left tibia, subsequent encounter for closed fracture with routine healing; X58.XXXD Exposure to other specified factors, subsequent encounter; Z98.890 Other specified postprocedural states | CPT/HCPCS: 97760; L1902 ==

== ENCOUNTER 2023-04-12 16:46 | Emergency (ER) | payer MEDICAID, SELFPAY ==
[2023-04-12 16:48] VITALS: BP 121/78; PULSE 69; RESP 16; TEMP 36.9; O2SAT 98; BMI 22.3
--- NOTE | 2023-04-12 17:13 | XRR_ITS ---
PROCEDURE INFORMATION: Exam: XR Left Wrist Exam date and time: 04/12/2023 5:19 PM Age: 43 years old Clinical indication: Injury or trauma; Other: Smashed lt wrist; Crushing; Left TECHNIQUE: Imaging protocol: Radiologic exam of the left wrist. Views: 3 or more views. COMPARISON: No relevant prior studies available. FINDINGS: Bones/joints: Nondisplaced fracture through the distal ulnar diaphysis. Old ulnar styloid avulsion fracture noted. Soft tissues: Normal. XR/XR wrist LT min 3V* [id number] IMPRESSION: Nondisplaced fracture through the distal ulna.
--- NOTE | 2023-04-12 17:13 | W.ED.EXTPRO ---
HPI - Extremity Problem General: Chief complaint: Extremity Injury, Upper Stated complaint: left hand injury Time Seen by Provider: 04/12/23 17:12 History of Present Illness: 43-year-old male patient comes in for injury to the left forearm. Patient reports that he was putting in an air conditioner when the window came down onto his left forearm along the ulnar aspect. Patient reports pain and discomfort. Patient has a superficial abrasion. Patient is able to move fingers without difficulty. Patient is unable to rotate wrist without pain. Review of Systems General: Reports: 10 or more systems reviewed and unremarkable except in HPI and below Musc: Reports: extremity pain and extremity swelling FOR[facility] ED PFSH: Medical History No significant past medical history Surgical History History of appendectomy Social History Smoking and tobacco status: current every day smoker Alcohol intake: current Alcohol intake frequency: few times a week Physical Exam Const: COMMON NORMALS: alert HENMT: COMMON NORMALS: normocephalic HEAD & SCALP: normocephalic MOUTH: Normal oral and palatal mucosa present Neck/C-Spine: COMMON NORMALS: full ROM Resp: COMMON NORMALS: normal respiratory effort and clear to auscultation bilaterally AUSCULTATION: clear to auscultation bilaterally Cardio: COMMON NORMALS: regular rate and regular rhythm RATE: regular rate RHYTHM: regular rhythm GI: COMMON NORMALS: Soft to palpation PALPATION: Yes Soft to palpation Extremity: LEFT UPPER EXTREMITY: Yes lower arm (Superficial abrasion to the mid forearm, no bleeding,) Left lower arm: Yes inspection, Yes palpation (Tender to palpation) and Yes neurovascular exam (Distal pulses intact, normal sensation distally) Neuro: SENSORIUM/ORIENTATION: Yes alert Course Vital Signs: Vital signs: Vital Signs Temperature 98.4 F 04/12/23 16:48 Pulse Rate 69 04/12/23 16:48 Respiratory Rate 16 04/12/23 16:48 Blood Pressure 121/78 04/12/23 16:48 Pulse Oximetry 98 04/12/23 16:48 MDM - Extremity (Nontraumatic) Medical Decision Making 43-year-old male patient comes in today for complaints of injury to the left forearm. On exam patient has mild swelling and tenderness to the mid to distal forearm on the left side. Distal pulses and sensation are intact. Patient has increased pain with rotation of the wrist. Patient is able to move fingers without difficulty. Vital signs are normal. Differential diagnosis includes but not limited to fracture, sprain, contusion. X-ray notes a transverse fracture of the lower third of the ulnar shaft which is nondisplaced. Patient was placed in a volar splint and case management was requested to have patient follow-up with Ortho for further evaluation and treatment. Reviewed this with patient and family who reported understanding and agreed to plan. Lab Data Radiology Impressions Wrist X-Ray 04/12/23 17:13 IMPRESSION: Nondisplaced fracture through the distal ulna. Discharge Plan Discharge Patient Disposition: Home Clinical Impression: Ulnar shaft fracture Qualifiers: Encounter type: initial encounter Fracture type: closed Fracture morphology: transverse Fracture alignment: nondisplaced Laterality: left Qualified Code(s): S52.225A - Nondisplaced transverse fracture of shaft of left ulna, initial encounter for closed fracture Condition: Stable Prescriptions: New hydrocodone-acetaminophen 5-325 mg tablet 1 tab PO Q8H PRN (Reason: pain (scale score 7-10)) Qty: 10 0RF No Action melatonin 12 mg tablet 12 mg PO DAILY 28 Days Qty: 30 2RF (DME) Knee Scooter to the left See Rx Instructions .Route .MEDSUPPLY Qty: 1 0RF Rx Instructions: As directed ibuprofen 800 mg tablet 800 mg PO Q6H 7 Days Qty: 28 0RF (DME) Cam boot to the Left Ankle See Rx Instructions .Route .MEDSUPPLY Qty: 1 0RF Rx Instructions: As directed (DME) ASO Brace See Rx Instructions .Route .MEDSUPPLY Qty: 1 0RF Rx Instructions: As directed cyclobenzaprine 10 mg tablet 10 mg PO Q12H Qty: 14 0RF naproxen [Naprosyn] 500 mg tablet 500 mg PO BID PRN (Reason: pain) Qty: 20 0RF oxycodone-acetaminophen 5-325 mg tablet 1 tab PO Q6H PRN (Reason: pain) 7 Days Qty: 28 0RF tramadol 50 mg tablet 50 mg PO Q6H PRN (Reason: pain) 5 Days Qty: 20 0RF (DME) Crutches See Rx Instructions .Route .MEDSUPPLY Qty: 1 0RF Rx Instructions: As directed to HOME aspirin 81 mg capsule 81 mg PO DAILY Qty: 21 0RF Rx Instructions: Take one capsule by mouth daily for 3 weeks ondansetron 4 mg tablet,disintegrating 4 mg PO Q8H PRN (Reason: nausea and vomiting) Qty: 10 0RF celecoxib [Celebrex] 100 mg capsule 100 mg PO BID PRN (Reason: pain) Qty: 20 0RF Discharge Orders: Discharge ED (Routine); Ordered 04/12/23 Ordered By: Sammy Shepherd Discharge Diet: Usual diet Discharge Activity: Increase activity as tolerated Patient Instructions: Fractures - Forearm, Opioid Safety Activity Restrictions/Additional Instructions: Keep splint clean and dry. Follow-up with orthopedic surgeon for further evaluation and treatment. Use acetaminophen and ibuprofen to help control pain. Use ice for further pain relief. Use hydrocodone for severe pain. Case management will contact you regarding orthopedic follow-up. Return to emergency department for new concerns or worsening symptoms. Coding Level of Care Code ED [employer] Associate for Wilmer Linn
[2023-04-12] MEDS: HYDROcodone-acetaminophen 5-325 mg Tablet 1 TAB PO (17:35)
--- NOTE | 2023-04-13 07:35 | DCPLANNER ---
Addendum entered by Neris Perez 04/15/23 10:32: Patient did attend this appointment with ortho Addendum entered by Neris Perez 04/13/23 10:35: Patient has a follow up appointment scheduled for , April 14, 2023 at 2:00 with Toi Avery at ortho. Original Note: truck service manager had massage to schedule a follow up appointment for patient with ortho. truck service manager sent patients information to the front office staff at ortho. Patients information will be printed and reviewed. Clinic will call patient with appointment information.
--- NOTE | 2023-04-13 10:34 | DCPLANNER ---
test center manager called patient due to no primary care physician - no answer at this time.
== END 2023-04-12 18:21 | disposition home or self-care (01) ==
PROVIDERS: Emergency Provider Nurse Practitioner Family
DX: S52.225A Nondisplaced transverse fracture of shaft of left ulna, initial encounter for closed fracture (principal); Z79.82 Long term (current) use of aspirin; F17.210 Nicotine dependence, cigarettes, uncomplicated; W20.8XXA Other cause of strike by thrown, projected or falling object, initial encounter
CPT/HCPCS: 29125; 73110; 99283

== ENCOUNTER 2023-04-14 16:21 | Outpatient (CLI) | payer MEDICAID, SELFPAY | END 2023-04-14 16:22 | disposition home or self-care (01) | LOC: SPT 16:21 | PROVIDERS: Visit Provider Physician Assistant | DX: Z46.89 Encounter for fitting and adjustment of other specified devices (principal); S52.225D Nondisplaced transverse fracture of shaft of left ulna, subsequent encounter for closed fracture with routine healing; X58.XXXD Exposure to other specified factors, subsequent encounter | CPT/HCPCS: 97760; L3982 ==

== ENCOUNTER → 2023-05-03 15:34 | Outpatient (BNVA) | payer MEDICAID, SELFPAY | PROVIDERS: Visit Provider Physician Assistant | DX: S52.225D Nondisplaced transverse fracture of shaft of left ulna, subsequent encounter for closed fracture with routine healing; W20.8XXD Other cause of strike by thrown, projected or falling object, subsequent encounter | CPT/HCPCS: 73110 ==

== ENCOUNTER → 2023-05-24 15:29 | Outpatient (BNVA) | payer MEDICAID, SELFPAY | PROVIDERS: Visit Provider Physician Assistant | DX: S52.225D Nondisplaced transverse fracture of shaft of left ulna, subsequent encounter for closed fracture with routine healing (principal); X58.XXXD Exposure to other specified factors, subsequent encounter | CPT/HCPCS: 73110 ==

== ENCOUNTER → 2023-06-14 15:07 | Outpatient (BNVA) | payer MEDICAID, SELFPAY | PROVIDERS: Visit Provider Physician Assistant | DX: S52.202A Unspecified fracture of shaft of left ulna, initial encounter for closed fracture; W50.0XXA Accidental hit or strike by another person, initial encounter | CPT/HCPCS: 73110 ==

== ENCOUNTER → 2023-07-12 14:24 | Outpatient (BNVA) | payer MEDICAID, SELFPAY | PROVIDERS: Visit Provider Physician Assistant | DX: S52.225A Nondisplaced transverse fracture of shaft of left ulna, initial encounter for closed fracture; X58.XXXA Exposure to other specified factors, initial encounter | CPT/HCPCS: 73110 ==

== ENCOUNTER → 2023-07-28 15:49 | Outpatient (BNVA) | payer MEDICAID, SELFPAY | PROVIDERS: Visit Provider Physician Assistant | DX: S52.225A Nondisplaced transverse fracture of shaft of left ulna, initial encounter for closed fracture; X58.XXXA Exposure to other specified factors, initial encounter | CPT/HCPCS: 73110 ==

== ENCOUNTER → 2023-09-22 15:25 | Outpatient (BNVA) | payer MEDICAID, SELFPAY | PROVIDERS: Visit Provider Physician Assistant | DX: S52.225D Nondisplaced transverse fracture of shaft of left ulna, subsequent encounter for closed fracture with routine healing; X58.XXXD Exposure to other specified factors, subsequent encounter | CPT/HCPCS: 73110 ==

== ENCOUNTER → 2023-12-12 15:17 | Outpatient (BNVA) | payer MEDICAID, SELFPAY | PROVIDERS: Visit Provider Podiatrist Foot & Ankle Surgery | DX: M25.372 Other instability, left ankle (principal); M19.072 Primary osteoarthritis, left ankle and foot | CPT/HCPCS: 73610 ==

== ENCOUNTER → 2024-09-02 14:04 | Outpatient (BNVA) | payer MEDICAID, SELFPAY | PROVIDERS: Visit Provider Emergency Medicine | DX: R39.9 Unspecified symptoms and signs involving the genitourinary system (principal); R81 Glycosuria; A08.4 Viral intestinal infection, unspecified | CPT/HCPCS: 81000; 82962; 87086 ==